=== PATIENT | male | born 1955 | race Caucasian/White ===

== ENCOUNTER 2021-07-18 00:59 | Emergency (ER) | payer MEDICARE ==
[~2021-07-18] VITALS: Ht 177.8 cm; Wt 99.8 kg
== END 2021-07-18 12:42 | disposition expired ==
LOC: ER 01:17
DX: I46.9 Cardiac arrest, cause unspecified (principal); F03.90 Unspecified dementia, unspecified severity, without behavioral disturbance, psychotic disturbance, mood disturbance, and anxiety; I10 Essential (primary) hypertension; E11.9 Type 2 diabetes mellitus without complications; B19.20 Unspecified viral hepatitis C without hepatic coma
CPT/HCPCS: 99283